=== PATIENT | male | born 1965 | race Caucasian/White ===

== ENCOUNTER 2016-10-04 16:56 | Emergency (ER) | payer SELFPAY ==
--- NOTE | 2016-10-22 15:51 | ER ---
ADMIT: 10/04/2016 RM/LOC: ER [facility] MR#: [id number] [place], [place] [id number] [address] [address] Emergency Room Report SEX: M AGE: 51 : 1965 DATE: 10/04/2016 HISTORY OF PRESENT ILLNESS: The patient is a 51-year-old, male, presents to the emergency room with body aches and fever for 1 day. He has had a headache and fever. gave him Tylenol very early this morning, but has not given him anything else today. He did not go to work today. REVIEW OF SYSTEMS: Otherwise negative. PAST MEDICAL HISTORY: Negative. PAST SURGICAL HISTORY: He has had an appendectomy as a surgical procedure. ALLERGIES: NO ALLERGIES. PHYSICAL EXAMINATION: VITAL SIGNS: Within normal limits with an increased temperature of 101.7. Blood pressure 126/68, heart rate 90, respirations 32, temp is 101.7, and O2 sats 97%. HEENT: Sinus tenderness with pharyngeal erythema. ABDOMEN: Nontender, soft. NEUROLOGIC: Oriented x4. RESPIRATORY: Some rales. Sepsis protocol started. Negative for pneumonia x-ray. Lactic acid 1.1. INR 1.0. WBC 17,000, hemoglobin 13, and hematocrit is 39. Potassium 3.5. Troponin 0. Blood trace in the urine with rbc's 0 to 5 and wbc's 0 to 5. Heart rate normal sinus rhythm, 83 beats per minute. He was given Rocephin IV and fluids and azithromycin for home followup. Encouraged to stop smoking or decrease his smoking and follow up with his primary provider given today Dr. Chavez, [place] [facility]. ANCA Hooper / Oscar Ramey MD / [place] JOB #: [id number] CC: Oscar Ramey MD, Attending Physician
== END 2016-10-04 20:50 | disposition home or self-care (01) ==
LOC: ER 16:56
DX: J40 Bronchitis, not specified as acute or chronic (principal); Z90.49 Acquired absence of other specified parts of digestive tract